=== PATIENT | male | born 1990 | race Caucasian/White ===

== ENCOUNTER 2024-06-10 17:22 | Emergency (ER) | payer SELFPAY ==
[2024-06-10 17:38] VITALS: PULSE 87; RESP 22; TEMP 36.6; O2SAT 100
== END 2024-06-10 23:01 | disposition left against medical advice (07) ==
LOC: ANHED 19:13
DX: K08.89 Other specified disorders of teeth and supporting structures (principal)
CPT/HCPCS: 99199